=== PATIENT | female | born 1965 | race Caucasian/White ===

== ENCOUNTER 2017-04-30 08:41 | Emergency (ER) | payer OTHER ==
[2017-04-30 09:58] VITALS: BP 140/90
--- NOTE | 2017-04-30 10:16 | UC ---
Abdominal Pain Female HPI - HPI Summary HPI Summary: cramping pain middle of left side on/off for 4 days---no fevers chills nausea or vomiting - History of Current Complaint Chief Complaint: UCAbdominalPain Stated Complaint: SIDE PAIN Time Seen by Provider: 04/30/17 09:51 Hx Obtained From: Patient Hx Last Menstrual Period: NO PERIODS - ON BCP STRAIGHT TO PREVENT CYSTS ON OVARIES ?: No Onset/Duration: Gradual Onset, Lasting Days - 4, Still Present Timing: Constant Severity Initially: Moderate Severity Currently: Moderate Pain Intensity: 5 Pain Scale Used: 0-10 Numeric Location: Other - mid laft side pain Radiates: No Character: Cramping Aggravating Factor(s): Nothing Alleviating Factor(s): Nothing Associated Signs and Symptoms: Positive: Negative Allergies/Adverse Reactions: Allergies Allergy/AdvReac Type Severity Reaction Status Date / Time metronidazole [From Flagyl] Allergy Severe Hives Verified 04/30/17 09:46 Penicillins Allergy Severe Hives Verified 04/30/17 09:46 Sulfa (Sulfonamide Allergy Severe Hives Verified 04/30/17 09:46 Antibiotics) Home Medications: Home Medications Bisoprolol TAB* [Zebeta TAB*] 1 tab PO DAILY 04/30/17 [History Confirmed ] Norethindrone-Ethinyl Estrad [Alyacen 1-35-28 Tablet] 1 tab PO DAILY 04/30/17 [ History Confirmed 04/30/17] Omeprazole CAP* [Prilosec CAP* 20 MG] 1 tab PO DAILY 04/30/17 [History Confirmed 04/30/17] PMH/Surg Hx/FS Hx/Imm Hx Previously Healthy: No Cardiovascular History: Hypertension GI/ History: Gastroesophageal Reflux - Surgical History Surgical History: Yes Surgery Procedure, Year, and Place: LAPAROSCOPY TO DRAIN OVARIAN CYSTS ON THE RIGHT SIDE. - Family History Known Family History: Positive: None - Social History Occupation: Employed Full-time Lives: With Family Alcohol Use: None Substance Use Type: None Smoking Status (MU): Never Smoked Tobacco Review of Systems Constitutional: Negative Skin: Negative Eyes: Negative ENT: Negative Respiratory: Negative Cardiovascular: Negative Gastrointestinal: Abdominal Pain Genitourinary: Negative Motor: Negative Neurovascular: Negative Musculoskeletal: Negative Neurological: Negative Psychological: Negative Is Patient Immunocompromised?: No All Other Systems Reviewed And Are Negative: Yes Physical Exam Triage Information Reviewed: Yes Appearance: Well-Appearing, No Pain Distress, Well-Nourished Vital Signs: Initial Vital Signs Temp 99.4 F 04/30/17 09:48 Pulse 88 04/30/17 09:48 Resp 16 04/30/17 09:48 BP 140/90 04/30/17 09:48 Pulse Ox 98 04/30/17 09:48 Vital Signs Reviewed: Yes Eye Exam: Normal Eyes: Positive: Conjunctiva Clear ENT Exam: Normal ENT: Positive: Normal ENT inspection, Hearing grossly normal, Pharynx normal, TMs normal, Uvula midline. Negative: Nasal congestion, Nasal drainage, Tonsillar swelling, Tonsillar exudate, Trismus, Muffled voice, Hoarse voice, Dental tenderness, Sinus tenderness Dental Exam: Normal Neck exam: Normal Neck: Positive: Supple, Nontender, No Lymphadenopathy Respiratory Exam: Normal Respiratory: Positive: Chest non-tender, Lungs clear, Normal breath sounds, No respiratory distress, No accessory muscle use Cardiovascular Exam: Normal Cardiovascular: Positive: RRR, No Murmur, Pulses Normal, Brisk Capillary Refill Abdominal Exam: Other Abdomen Description: Positive: No Organomegaly, Soft, Peritoneal Signs. Negative: CVA Tenderness (R), CVA Tenderness (L), Distended, Guarding, Hepatomegaly, McBurney's Point Tenderness Bowel Sounds: Positive: Present Musculoskeletal Exam: Normal Musculoskeletal: Positive: Strength Intact, ROM Intact, No Edema Neurological Exam: Normal Neurological: Positive: Alert, Muscle Tone Normal Psychological Exam: Normal Skin Exam: Normal Diagnostics - Laboratory Diagnostic Studies Completed/Ordered: ua-trace leukoesterase - Radiology No standard instances Xray Interpretation: Positive (See Comments) - stool and gas no obstruction Radiology Interpretation Completed By: ED Physician, Radiologist Abd Pain Female Course/Dx - Course Course Of Treatment: Simithicone, miralax follow with pcp - Differential Dx/Diagnosis Provider Diagnoses: Abdomen pain Discharge - Discharge Plan Condition: Stable Disposition: HOME Patient Education Materials: Simethicone (By mouth), Polyethylene Glycol 3350 ( By mouth), Gas and Bloating (ED), Abdominal Pain (ED), Hypertension (ED) Referrals: Ekta Welsh MD [Primary Care Provider] - 1 Week
--- NOTE | 2017-04-30 11:27 | RAD ---
HISTORY: Left lower quadrant abdominal pain COMPARISONS: None relevant available time dictation VIEWS: Frontal supine and upright views of the abdomen. FINDINGS: BOWEL: There is a nonspecific bowel gas pattern, with nondilated small bowel gas noted. There is a large amount of stool within the colon. CALCULI: There are no abnormal calculi. BONES AND SOFT TISSUES: Mild degenerative changes are noted. OTHER FINDINGS: The lung bases are clear. There is no subphrenic gas. IMPRESSION: NONSPECIFIC BOWEL GAS PATTERN. LARGE AMOUNT OF STOOL THROUGHOUT THE COLON
--- NOTE | 2017-05-02 15:16 | UC ---
- Progress Note Progress Note: urine culture negative for growth - final no change valentine 05/02/2017
== END 2017-04-30 12:00 | disposition home or self-care (01) ==
LOC: UCEAST 08:41
DX: R10.32 Left lower quadrant pain (principal); K59.00 Constipation, unspecified; Z32.02 Encounter for pregnancy test, result negative; I10 Essential (primary) hypertension; K21.9 Gastro-esophageal reflux disease without esophagitis; Z88.1 Allergy status to other antibiotic agents; Z88.0 Allergy status to penicillin; Z88.2 Allergy status to sulfonamides
CPT/HCPCS: 74019; 81003; 84702; 87086

== ENCOUNTER 2019-02-21 18:21 | Emergency (ER) | payer OTHER ==
--- OUTSIDE RECORDS SUMMARY | 2019-02-21 18:26 | XMS REPORT | Summary of Care ---
:1965 Author Organization [facility] Address [address] [address] Care Team Providers Name Role Phone Anitha Ekta Primary Care Provider Reason for Visit Reason Comments Other possible bacterial infection Encounter Details Date Type Department Care Team Description 01/08/2019 Office Visit [facility] Pur[facility] Nielsen, Acute vaginitis ( Primary Dx); Practice [facility] Encounter for contraceptive management; [address] [place] [address] [place] [address] [phone] Allergies Active Allergy Reactions Severity Noted Date Comments Codeine GI Reaction 03/24/2007 Vomitting Metronidazole Rash 05/27/2011 Penicillins Other 03/24/2007 Face swelling Sulfacetamide Sodium Hives 03/24/2007 documented as of this encounter (statuses as of 01/08/2019) Medications Medication Sig Dispensed Refills Start Date End Date Status Bismuth Subsalicylate Take by 0 Active (PEPTO-BISMOL PO) mouth NEEDED. Probiotic Product Take by 0 Active (PROBIOTIC PO) mouth DAILY. Multiple Take by 0 Active Vitamins-Minerals (PX mouth. ADVANCED FORMULA MULTIVITS PO) bisoprolol (ZEBETA) 5 Take 1 Tab 90 Tab 3 01/27/2018 Active MG Oral by mouth TabIndications: DAILY. Hypertension, unspecified type montelukast TAKE 1 30 Tab 2 10/19/2018 Active (SINGULAIR) 10 MG TABLET BY Oral TabIndications: MOUTH EVERY ETD (Eustachian tube DAY dysfunction), bilateral Omeprazole delayed TAKE 1 90 Cap 3 10/24/2018 Active rel cap 20 MG Oral CAPSULE BY CAPSULE DELAYED MOUTH EVERY RELEASEIndications: DAY Gastroesophageal reflux disease without esophagitis Norethindrone-Eth Take 1 Tab 28 Tab 6 01/08/2019 Active Estradiol (ALAYCEN by mouth ) 1-35 MG-MCG DAILY. JUNE Oral TabIndications: SKIP PLACEBO Encounter for WEEK contraceptive management fluconazole Take 1 Tab 1 Tab 2 01/08/2019 Active (DIFLUCAN) 150 MG by mouth Oral TabIndications: DAILY. Acute vaginitis Norethindrone-Eth Take 1 Tab 28 Tab 11 06/13/2018 01/09/20 Discontinued Estradiol (ALAYCEN by mouth 19 (Reorder) ) 1-35 MG-MCG DAILY. Oral TabIndications: Encounter for contraceptive management documented as of this encounter (statuses as of 01/08/2019) Active Problems Problem Noted Date BMI 30.0-30.9,adult 11/23/2017 Endometriosis 05/11/2010 Overview: Surgery 05/01 in [facility] Heart palpitations 06/05/2008 Tachycardia - pulse 03/28/2008 GERD (gastroesophageal reflux disease) 03/26/2008 Ethmoid sinusitis 03/22/2008 Asthma, intermittent 03/22/2008 documented as of this encounter (statuses as of 01/08/2019) Resolved Problems Problem Noted Date Resolved Date Extrinsic asthma, unspecified 01/23/2008 03/22/2008 Nonallergic rhinitis 11/27/2007 03/22/2008 documented as of this encounter (statuses as of 01/08/2019) Immunizations Name Administration Dates Next Due Influenza (IM) Preservative Free 12/17/2018, 01/23/2008 Influenza Vaccine Intradermal 10/24/2017 TDAP Vaccine 08/31/2016 documented as of this encounter Social History Tobacco Use Types Packs/Day Years Used Date Never Smoker Smokeless Tobacco: Never Used Alcohol Use Drinks/Week oz/Week Comments Yes 3 Standard drinks or equivalent 2.5 Sex Assigned at Date Recorded Not on file Job Start Date Occupation Industry Not on file Not on file Not on file Travel History Travel Start Travel End No recent travel history available. documented as of this encounter Last Filed Vital Signs Vital Sign Reading Time Taken Comments Blood Pressure 158/80 01/08/2019 11:32 AM EST Pulse 100 01/08/2019 11:32 AM EST Temperature 37.6 01/08/2019 11:32 AM EST C (99.7 F) Respiratory Rate - - Oxygen Saturation 97% 01/08/2019 11:32 AM EST Inhaled Oxygen Concentration - - Weight 82.6 kg (182 lb) 01/08/2019 11:32 AM EST Height - - Body Mass Index 30.76 11/29/2018 8:23 AM EDT documented in this encounter Patient Instructions Patient InstructionsPurvi Fermin FNP - 01/08/2019 11:20 AM ESTMedication as directed Swab sent to lab 12: 13 PM EST documented in this encounter Progress Notes Purvi Fermin FNP - 01/08/2019 11:20 AM EST PATIENT: Maribel Blanchard : 1965 DATE OF SERVICE: 01/08/2019 CHIEF COMPLAINT: Chief Complaint Patient presents with Other possible bacterial infection Subjective HISTORY OF PRESENT ILLNESS: Maribel Blanchard is a 53-y.o. female. HPI Vaginal itching with discharge for several days - has been on several antibiotic for sinus Needs refill of OCP - label needs to say can skip placebo Employer asking for proof of immunity to MMR - no record of immunizations in chart Past Medical History: Diagnosis Date Asthma 1996 mild intermittent GERD (gastroesophageal reflux disease) History of breast surgery fna 2016, benign Hormonal contraceptive 10 years MVP (mitral valve prolapse) 2005 normal EF, stress echo 01/26 [place] Family History Problem Relation Age of Onset Heart Mother CAD Asthma Father COPD Breast Cancer Maternal Grandmother dx in her 60s Current Outpatient Medications Medication Sig Bismuth Subsalicylate (PEPTO-BISMOL PO) Take by mouth NEEDED. bisoprolol (ZEBETA) 5 MG Oral Tab Take 1 Tab by mouth DAILY. fluconazole (DIFLUCAN) 150 MG Oral Tab Take 1 Tab by mouth DAILY. montelukast (SINGULAIR) 10 MG Oral Tab TAKE 1 TABLET BY MOUTH EVERY DAY Multiple Vitamins-Minerals (PX ADVANCED FORMULA MULTIVITS PO) Take by mouth. Norethindrone-Eth Estradiol (ALAYCEN ) 1-35 MG-MCG Oral Tab Take 1 Tab by mouth DAILY. MAY SKIP PLACEBO WEEK Omeprazole delayed rel cap 20 MG Oral CAPSULE DELAYED RELEASE TAKE 1 CAPSULE BY MOUTH EVERY DAY Probiotic Product (PROBIOTIC PO) Take by mouth DAILY. No current facility-administered medications for this visit. Allergies Allergen Reactions Codeine GI Reaction Vomitting Flagyl [Metronidazole] Rash Pcn [Penicillins] Other Face swelling Sulfa [Sulfacetamide Sodium] Hives Social History Socioeconomic History Marital status: Single Spouse name: Not on file Number of children: Not on file Years of education: Not on file Highest education level: Not on file Occupational History Not on file Social Needs Financial resource strain: Not on file Food insecurity: Worry: Not on file Inability: Not on file Transportation needs: Medical: Not on file Non-medical: Not on file Tobacco Use Smoking status: Never Smoker Smokeless tobacco: Never Used Substance and Sexual Activity Alcohol use: Yes Alcohol/week: 2.5 standard drinks Types: 3 Standard drinks or equivalent per week Drug use: No Sexual activity: Not Currently control/protection: Pill Lifestyle Physical activity: Days per week: Not on file Minutes per session: Not on file Stress: Not on file Relationships Social connections: Talks on phone: Not on file Gets together: Not on file Attends faith service: Not on file Active member of club or organization: Not on file Attends meetings of clubs or organizations: Not on file Relationship status: Not on file Intimate partner violence: Fear of current or ex partner: Not on file Emotionally abused: Not on file Physically abused: Not on file Forced sexual activity: Not on file Other Topics Concern Not on file Social History Narrative Lives with cat. Works at [employer]. REVIEW OF SYSTEMS: Review of Systems Constitutional: Positive for malaise/fatigue. Negative for chills and fever. Gastrointestinal: Negative for abdominal pain. Genitourinary: Negative for dysuria, flank pain, frequency, hematuria and urgency. Musculoskeletal: Positive for myalgias. Skin: Negative for rash. Objective PHYSICAL EXAM: VITALS: BP 158/80 | Pulse 100 | Temp 99.7 F (37.6 C) (Tympanic) | Wt 182 lb (82.6 kg) |SpO2 97% | BMI 30.76 kg/m Body mass index is 30.76 kg/m. Physical Exam Vitals signs reviewed. Constitutional: General: She is not in acute distress. Appearance: Normal appearance. HENT: Head: Normocephalic and atraumatic. Abdominal: Palpations: Abdomen is soft. Tenderness: There is no tenderness. Genitourinary: Vagina: Vaginal discharge present. No lesions. Cervix: No cervical motion tenderness. Comments: White discharge present - swab obtained Musculoskeletal: Normal range of motion. Skin: General: Skin is warm and dry. Capillary Refill: Capillary refill takes less than 2 seconds. Findings: No rash. Neurological: Mental Status: She is alert and oriented to person, place, and time. ASSESSMENT / IMPRESSION: ICD-9-CM ICD-10-CM 1. Acute vaginitis 616.10 N76.0 LATRICIA / TIGRE / TRIC DNA PROBE fluconazole (DIFLUCAN) 150 MG Oral Tab LATRICIA / TIGRE / TRIC DNA PROBE 2. Encounter for contraceptive management V25.9 Z30.9 Norethindrone-Eth Estradiol (ALAYCEN ) 1-35 MG-MCG Oral Tab 3. Immunization deficiency V15.83 Z28.3 RUBEOLA IGG AB MUMPS VIRUS IGG ANTIBODY RUBELLA IGG (SEROLOGY) RUBELLA IGG (SEROLOGY) MUMPS VIRUS IGG ANTIBODY RUBEOLA IGG AB Plan Medication as directed Swab sent to lab MMR titers today Author: ALBERTO Luna 01/08/2019 12:14 documented in this encounter Plan of Treatment Name Type Priority Associated Diagnoses Date/Time LATRICIA / TIGRE / TRIC Lab Routine Acute vaginitis 01/08/2019 11:50 AM EST DNA PROBE RUBEOLA IGG AB Lab Routine Immunization deficiency 01/08/2019 11:56 AM EST MUMPS VIRUS IGG Lab Routine Immunization deficiency 01/08/2019 11:56 AM EST ANTIBODY RUBELLA IGG (SEROLOGY) Lab Routine Immunization deficiency 01/08/2019 11: 56 AM EST Name Type Priority Associated Diagnoses Order Schedule LATRICIA / TIGRE / TRIC Lab Routine Acute vaginitis 1 Occurrences starting DNA PROBE 01/08/2019 until 07/07/2019 RUBEOLA IGG AB Lab Routine Immunization deficiency Expected: 01/08/2019 (Approximate), Expires: 07/07/2019 MUMPS VIRUS IGG Lab Routine Immunization deficiency Expected: 01/08/2019 ANTIBODY (Approximate), Expires: 07/07/2019 RUBELLA IGG (SEROLOGY) Lab Routine Immunization deficiency Expected: 2018 (Approximate), Expires: 07/07/2019 Health Maintenance Due Date Last Done Comments PNEUMOCOCCAL 0-64 YRS (1 of 1973 1 - PPSV23) COLONOSCOPY SCREENING 2017 ZOSTER IMMUNIZATION SERIES 2017 (1 of 2) DEPRESSION SCREENING 08/02/2019 08/01/2018 DIABETES SCREENING 10/03/2019 10/02/2018, 07/01/2016, 07/01/2016, Additional history exists LIPID DISORDER SCREENING 11/30/2020 12/01/2015, 02/28/2015, 03/09/2006, Additional history exists INFLUENZA VACCINE Completed 12/17/2018, 10/24/2017, 01/23/2008 HPV IMMUNIZATION SERIES Aged Out No longer eligible based on patient's age to complete this topic MENINGOCOCCAL VACCINE IMM Aged Out No longer eligible based on patient's age to complete this topic documented as of this encounter Results Not on filedocumented in this encounter Visit Diagnoses Diagnosis Acute vaginitis - Primary Vaginitis and vulvovaginitis, unspecified Encounter for contraceptive management Unspecified contraceptive management Immunization deficiency Personal history of underimmunization status documented in this encounter Insurance Payer Benefit Plan / Subscriber ID Effective Dates Phone Address Type Group [employer]CIAL AETNA MARY LOU xxxxxxxxxx Effective for all [employer] PHL dates (Home) [facility] [phone] (Work) [place] [address] documented as of this encounter"
--- OUTSIDE RECORDS SUMMARY | 2019-02-21 18:26 | XMS REPORT | Continuity of Care Document ---
:1965 External Reference #:[id number] Author Name Chaz Cho M.D. (transmitted by agent of provider Francheska Balderas) Address [address] [place] [id number] Care Team Providers Name Role Phone Ekta Welsh MD - Family Medicine Care Team Information Operator Unavailable Problems Active Problems Provider Date Chronic sinusitis Carla Aviles NP Onset: 08/17/2018 Social History Type Date Description Comments Sex Unknown Tobacco Use Start: Unknown Never Smoked Cigarettes ETOH Use Rare Use Of Alcohol Recreational Drug Use Never Used Drugs Allergies, Adverse Reactions, Alerts Active Allergies Reaction Severity Comments Date Penicillin Hives Moderate 05/05/2018 sulfa Hives Moderate 05/05/2018 Inactive Allergies NKDA 05/05/2018 Medications Active Medications SIG Qnty Indications Ordering Provider Date Zebutal Unknown 50-325-40mg Capsules Prilosec OTC 1 by mouth every Unknown 20mg Tablets day DR History Medications Topiramate 1 by mouth at 70tabs Chaz Cho, 11/15/2018 - 25mg Tablets night for 1 week : M.D. 01/05/2019 increase to twice a day for 1week, 2 in at night and 1 in the morning for 1 week, Gabapentin 1 by mouth twice 30caps Chaz Cho, 10/31/2018 - 100mg Capsules daily for 15 days M.D. 01/05/2019 Levofloxacin 1 tab every day x 7tabs Chaz Cho, 10/02/2018 - 500mg Tablets 7 days M.D. 10/30/2018 Dexamethasone one tab daily for 5tabs Chaz Cho, 09/08/2018 - 4mg Tablets 5 days M.D. 10/30/2018 Clindamycin HCL 1 by mouth twice a 20caps Chaz Cho, 08/21/2018 - 300mg day for 10 days M.D. 01/05/2019 Capsules Prednisone 1 by mouth every 5tabs Chaz Cho, 08/17/2018 - 10mg Tablets morning M.D. 10/30/2018 Azithromycin 2 by mouth every 6tabs Chaz Cho, 07/18/2018 - 250mg Tablets day 1, 1 by mouth M.D. 08/16/2018 every day 2-5 Immunizations Description No Information Available Vital Signs Date Vital Result Comment 01/05/2019 9:54am Weight 183.00 lb Height 65 inches 5'5" BMI (Body Mass Index) 30.4 kg/m2 BP Systolic 156 mmHg BP Diastolic 95 mmHg Heart Rate 85 /min O2 % BldC Oximetry 98 % Body Temperature 98.7 F Pain Level 6 10/31/2018 5:08pm Weight 179.00 lb Height 65 inches 5'5" BMI (Body Mass Index) 29.8 kg/m2 BP Systolic 168 mmHg BP Diastolic 103 mmHg Heart Rate 86 /min O2 % BldC Oximetry 98 % Body Temperature 98.6 F Pain Level 6 Results Description No Information Available Procedures Date Code Description Status 10/02/2018 01828 Cat Scan Maxillofacial W/O Contrast,computed tomography Completed 10/02/2018 38955 Cat Scan Maxillofacial W/O Contrast,computed tomography Completed 10/02/2018 10468 Cat Scan Maxillofacial W/O Contrast,computed tomography Completed Medical Devices Description No Information Available Encounters Type Date Location Provider Dx Diagnosis Office Visit 10/31/2018 Main Office Chaz Cho M.D. G50.1 Atypical facial pain 5:00p G50.0 Trigeminal neuralgia J32.9 Chronic sinusitis, unspecified Office Visit 10/02/2018 8:45a Main Office Chaz Cho J32.Mila Chronic sinusitis, M.D. unspecified K21.9 Gastro-esophageal reflux disease without esophagitis Assessments Date Code Description Provider 10/31/2018 G50.1 Atypical facial pain Chaz Cho M.D. 10/31/2018 G50.0 Trigeminal neuralgia Chaz Cho M.D. 10/31/2018 J32.9 Chronic sinusitis, unspecified Chaz Cho M.D. 10/02/2018 J32.9 Chronic sinusitis, unspecified Neville Lyons MD 10/02/2018 J32.9 Chronic sinusitis, unspecified Chaz Cho M.D. 10/02/2018 K21.9 Gastro-esophageal reflux disease without Chaz Cho M.D. esophagitis 09/08/2018 J32.9 Chronic sinusitis, unspecified Chaz Cho M.D. 08/17/2018 J32.9 Chronic sinusitis, unspecified Carla Aviles, TARIQ 07/14/2018 J32.9 Chronic sinusitis, unspecified Chaz Cho M.D. Plan of Treatment No Information Available Functional Status Description No Information Available Mental Status Description No Information Available Referrals Description No Information Available
--- NOTE | 2019-02-21 18:44 | UC ---
HPI BURN - HPI Summary HPI Summary: 53 yo female presents with burn. She tells me that on 02/16 she was curling her hair and dropped the curling iron onto her left wrist. Sustained a burn to the area. Has been applying neosporin and a band-aid daily since that time. Today noticed some spreading redness and scant green/yellow drainage. She is concerned for infection. She states there was a blister to the site, but it popped while washing her hands a few days ago. Unsure date of last tetanus. Denies fever, chills, or hx of MRSA. No dm - History of Current Complaint Stated Complaint: BURN Time Seen by Provider: 02/21/19 18:44 Hx Obtained From: Patient Hx Last Menstrual Period: NO PERIODS - ON BCP STRAIGHT TO PREVENT CYSTS ON OVARIES Onset Severity: Moderate Current Severity: Mild Pain Intensity: 3 Pain Scale Used: 0-10 Numeric - Allergy/Home Medications Allergies/Adverse Reactions: Allergies Allergy/AdvReac Type Severity Reaction Status Date / Time metronidazole [From Flagyl] Allergy Severe Hives Verified 02/21/19 19:04 Penicillins Allergy Severe Hives Verified 02/21/19 19:04 Sulfa (Sulfonamide Allergy Severe Hives Verified 02/21/19 19:04 Antibiotics) PMH/Surg Hx/FS Hx/Imm Hx Cardiovascular History: Hypertension GI/ History: Gastroesophageal Reflux - Surgical History Surgical History: Yes Surgery Procedure, Year, and Place: LAPAROSCOPY TO DRAIN OVARIAN CYSTS ON THE RIGHT SIDE. SINUS SURGERY 06/[address] SMITH NO METAL PER PATIENT - Family History Known Family History: Positive: None - Social History Occupation: Employed Full-time Lives: With Family Alcohol Use: None Substance Use Type: None Smoking Status (MU): Never Smoked Tobacco Review of Systems All Other Systems Reviewed And Are Negative: No Constitutional: Positive: Negative Skin: Positive: Other - burn Respiratory: Positive: Negative Cardiovascular: Positive: Negative Neurovascular: Positive: Negative Musculoskeletal: Positive: Negative Neurological: Positive: Negative Psychological: Positive: Negative Physical Exam - Summary Physical Exam Summary: GENERAL: NAD. WDWN. No pain distress. SKIN: LEFT WRIST: Dorsal aspect near the ulnar styloid there is a 2.0cm oval shaped area of granulation tissue with scant green/yellow drainage and dried material. Moderate erythema 2mm surrounding. Faint erythema 3.0cm extending. Mild TTP. FROM at wrist. CHEST: No accessory muscle use. Breathing comfortably and in no distress. CV: Pulses intact. Cap refill <2seconds NEURO: Alert. PSYCH: Age appropriate behavior. Triage Information Reviewed: Yes Vital Signs: Vital Signs: Temp Pulse Resp BP Pulse Ox 99.5 F 95 17 132/92 100 02/21/19 18:55 02/21/19 18:55 02/21/19 18:55 02/21/19 18:55 02/21/19 18:55 Vital Signs Reviewed: Yes Burn Calculation - [place] Formula for Fluid Resuscitation 24 -Hour Fluid Replacement: 0.0 Course/Dx Burn - Course Course Of Treatment: Second degree burn to dorsal left wrist. tdap udpated today. Will start her with clindamycin and have her continue to change the dressing daily until well healed - Diagnoses Provider Diagnosis: Burn of left wrist Discharge ED - Sign-Out/Discharge Documenting (check all that apply): Patient Departure All imaging exams completed and their final reports reviewed: No Studies - Discharge Plan Condition: Stable Disposition: HOME Prescriptions: Clindamycin HCl 300 mg PO TID #21 capsule Patient Education Materials: Second Degree Burn (ED) Referrals: Ekta Welsh MD [Primary Care Provider] - Additional Instructions: If you develop a fever, shortness of breath, chest pain, new or worsening symptoms - please call your PCP or go to the ED immediately. Keep the area covered with a band-aid as much as possible, changing the dressing daily. Take the antibiotic as directed - Billing Disposition and Condition Condition: STABLE Disposition: Home
[2019-02-21] MEDS ORDERED: Clindamycin CAP* 150 MG PO ONE (18:51)
[2019-02-21] MEDS ORDERED: Tetan/Diph/Pertus SYR(Tdap)* 0.5 ML SYR(BOOSTRIX) use SYR contains LATEX IM ONE (18:56)
[2019-02-21 19:03] VITALS: BP 132/92
== END 2019-02-21 19:14 | disposition home or self-care (01) ==
LOC: UCEAST 18:21
DX: T23.272A Burn of second degree of left wrist, initial encounter (principal); I10 Essential (primary) hypertension; Z23 Encounter for immunization; Z88.1 Allergy status to other antibiotic agents; Z88.0 Allergy status to penicillin; Z88.2 Allergy status to sulfonamides; W86.1XXA Exposure to industrial wiring, appliances and electrical machinery, initial encounter; Y93.89 Activity, other specified; Y92.9 Unspecified place or not applicable
CPT/HCPCS: 90715; 99212; A9270-GY; G0463